=== PATIENT | female | born 1995 | race Caucasian/White ===

== ENCOUNTER 2018-05-26 19:14 | Emergency (ER) | payer MEDICAID ==
[~2018-05-26] VITALS: Ht 157.5 cm; Wt 59.0 kg
[2018-05-26 20:04] LABS: URINE HCG NEGATIVE (NEG)
[2018-05-26 20:05] LABS: CLARITY,URINE SLIGHTLY CLOUDY (Clear); COLOR,URINE YELLOW (Yellow); GLUCOSE, URINE NEGATIVE (Neg); KETONES,URINE NEGATIVE (Neg); LEUKOCYTE ESTERASE ,URINE NEGATIVE (Neg); NITRITES, URINE NEGATIVE (Neg); OCCULT BLOOD,URINE NEGATIVE (Neg); PROTEIN,URINE NEGATIVE (Neg)
[2018-05-26 20:06] LABS: BASOPHILS % (AUTO) 0.3 % (0-1); EOSINOPHILS # (AUTO) 0.1 X10'3 (0-0.9); EOSINOPHILS % (AUTO) 0.6 % (0-6); HEMATOCRIT 40.5 % (35.0-45.0); HEMOGLOBIN 13.9 g/dl (12.0-16.0); LYMPHOCYTES # (AUTO) 2.8 X10'3 (1.1-4.8); LYMPHOCYTES % (AUTO) 27.1 % (21-51); MEAN CORPUSCULAR HEMOGLOBIN 33.1 PG (27.0-31.0); MEAN CORPUSCULAR HGB CONC 34.4 % (33.0-36.5); MEAN CORPUSCULAR VOLUME 96.2 FL (78-98); MEAN PLATELET VOLUME 8.3 FL (7.4-10.4); MONOCYTES # (AUTO) 0.5 X10'3 (0-0.9); MONOCYTES % (AUTO) 4.7 % (2-12); NEUTROPHILS % (AUTO) 67.3 % (42-75); PLATELET COUNT 313 X10'3 (140-440); RED BLOOD COUNT 4.21 X10'6 (4.20-5.60); RED CELL DISTRIBUTION WIDTH 13.3 % (11.5-14.5); WHITE BLOOD COUNT 10.4 X10'3 (4.5-11.0)
[2018-05-26 20:09] LABS: UA COLLECTION TYPE CLN CATCH MIDSTREAM
[2018-05-26] MEDS ORDERED: ondansetron/PF 4mg/2ml inj IV ONE (20:10)
[2018-05-26] MEDS ORDERED: morphine 4 MG/ML inj SYRINge IV ONE ×2 (20:10→23:05)
[2018-05-26] MEDS ORDERED: normal saline 1000ml 1,000 ML IV ONE (20:10)
[2018-05-26 20:16] LABS: PROTHROMBIN TIME 10.7 SECONDS (9.0-12.0)
[2018-05-26 20:21] LABS: ALANINE AMINOTRANSFERASE 22 U/L (12-78); ALBUMIN 4.1 G/DL (3.4-5.0); ALBUMIN/GLOBULIN RATIO 1.3 (1.1-1.5); ALKALINE PHOSPHATASE 76 IU/L (46-116); ASPARTATE AMINO TRANSFERASE 16 U/L (10-37); BILIRUBIN,TOTAL 0.4 MG/DL (0.1-1.0); BLOOD UREA NITROGEN 11 MG/DL (7-18); BUN/CREATININE RATIO 13.4 (6.6-38.0); CALCIUM 8.4 MG/DL (8.5-10.1); CHLORIDE 105 MMOL/L (99-107); CREATININE 0.82 MG/DL (0.40-0.90); GLUCOSE 81 MG/DL (70-104); POTASSIUM 3.3 MMOL/L (3.5-5.1); TOTAL CARBON DIOXIDE 27.2 MMOL/L (24-32); TOTAL PROTEIN 7.2 G/DL (6.4-8.2); eGFR 86 ML/MIN
[2018-05-26 20:22] LABS: BACTERIA,URINE FEW /HPF (Neg); RBC,URINE 0-2 /HPF (0-2); WBC,URINE 0-4 /HPF (0-4)
[2018-05-26 20:22] LABS: ANION GAP 9 (8-16); LIPASE 186 U/L (73-393); SODIUM 141 MMOL/L (135-145)
[2018-05-26 20:23] LABS: MUCUS STRANDS MODERATE /LPF (Neg); SQUAMOUS EPITHELIAL CELL,UR MODERATE /LPF (FEW)
[2018-05-26] MEDS ORDERED: iohexol 300mg/ml 100ml inj. ONE (21:13)
[2018-05-26] MEDS ORDERED: famotidine/PF 10 mg/ml inj IV ONE (21:45)
[2018-05-26] MEDS ORDERED: mag hydrox/Alum hydrox/simeth 30ml oral suspension PO ONE (21:45)
[2018-05-26] MEDS ORDERED: LIDOcaine Viscous 15ml cup MM PRN (21:45)
[2018-05-26] MEDS ORDERED: metoclopramide 5 mg/ml inj IV ONE (23:05)
[2018-05-26] MEDS ORDERED: FAMO-128 PO (23:08)
[2018-05-26] MEDS ORDERED: HYDR-569 PO (23:08)
[2018-05-26] MEDS ORDERED: ONDA8TAB9 PO (23:08)
[2018-05-27 00:05] VITALS: BP 113/69
== END 2018-05-27 00:06 | disposition home or self-care (01) ==
LOC: ER 19:15
DX: R10.13 Epigastric pain (principal); J45.909 Unspecified asthma, uncomplicated; F17.200 Nicotine dependence, unspecified, uncomplicated; Z90.49 Acquired absence of other specified parts of digestive tract; Z79.899 Other long term (current) drug therapy
CPT/HCPCS: 36415; 74177; 80053; 81001; 81025; 83690; 85025; 85610; 96361; 96374; 96375; 96376; 99285; J2270; J2405; J2765; J3490; J7030; Q9967

== ENCOUNTER 2022-10-17 02:59 | Emergency (ER) | payer MEDICAID ==
[~2022-10-17] VITALS: Ht 157.5 cm; Wt 66.8 kg
[~2022-10-17 02:59] MED LIST: FAMO-128 PO; HYDR-4383 PO; ONDA8TAB9 PO
[2022-10-17 03:18] VITALS: BP 129/85
== END 2022-10-17 04:39 | disposition home or self-care (01) ==
LOC: ER 02:59
DX: O34.519 Maternal care for incarceration of gravid uterus, unspecified trimester (principal); Z3A.21 21 weeks gestation of pregnancy; J45.909 Unspecified asthma, uncomplicated; F15.20 Other stimulant dependence, uncomplicated
CPT/HCPCS: 36415; 84702; 99283; 99284